=== PATIENT | male | born 1960 | race Caucasian/White ===

== ENCOUNTER 2017-09-21 06:11 | Day surgery (SDC) | payer BC ==
[2017-09-17 15:22] VITALS: BMI 27.1
[2017-09-21] MEDS ORDERED: BUPIVACAINE HCL/PF 0.5% (5MG/ML) 10 ML VIAL ONE (07:14)
[2017-09-21] MEDS ORDERED: morphine CARPU-JECT 10 MG/1 ML DISP.SYRIN ONE (07:16)
[2017-09-21] MEDS ORDERED: PROPOFOL 20 ML ONE ×3 (07:22→08:31)
[2017-09-21] MEDS ORDERED: SUCCINYLCHOLINE CHLORIDE 200 MG/10 ML VIAL ONE (07:22)
[2017-09-21] MEDS ORDERED: MIDAZOLAM HCL 2 MG/2 ML SINGLE DOSE VIAL ONE (07:22)
[2017-09-21] MEDS ORDERED: ONDANSETRON 4 MG/2 ML VIAL ONE (07:23)
[2017-09-21] MEDS ORDERED: LIDOCAINE HCL/PF 2% SDV 5ML VIAL ONE ×2 (07:23→08:18)
[2017-09-21] MEDS ORDERED: KETOROLAC TROMETHAMINE 30 MG/1 ML VIAL ONE ×2 (07:23→08:19)
[2017-09-21] MEDS ORDERED: DEXAMETHASONE SOD PHOSPHATE 4 MG/1 ML VIAL ONE ×2 (07:23→08:19)
[2017-09-21] MEDS ORDERED: SEVOFLURANE 250 ML BTL ONE (07:31)
[2017-09-21] MEDS ORDERED: oxyCODONE HCL 5 MG TABLET PO PRN ×2 (07:53)
[2017-09-21] MEDS ORDERED: ONDANSETRON 4 MG/2 ML VIAL IVPUSH PRN (07:53)
[2017-09-21] MEDS ORDERED: LACTATED RINGERS SOLUTION 1,000 ML IV SCH (08:00)
[2017-09-21] MEDS ORDERED: SODIUM CHLORIDE 0.9% P/F 10 ML VIAL IJ ONE ×2 (08:21→08:27)
[2017-09-21] MEDS ORDERED: ROCURONIUM BROMIDE 50 MG/5 ML VIAL ONE (08:21)
[2017-09-21] MEDS ORDERED: ceFAZolin SODIUM 1 GM VIAL ONE ×2 (08:21→08:27)
[2017-09-21] MEDS ORDERED: ePHEDrine SULFATE 50 MG/1 ML AMPULE ONE (08:23)
[2017-09-21] MEDS ORDERED: BUPIVACAINE HCL/PF 0.5% (5MG/ML) 10 ML VIAL IJ ONE (08:33)
[2017-09-21] MEDS ORDERED: morphine CARPU-JECT 10 MG/1 ML DISP.SYRIN IM ONE (08:45)
[2017-09-21] MEDS ORDERED: BUPIVACAINE HCL/PF (5 MG/ML) 30 ML VIAL IJ ONE (08:45)
[2017-09-21 10:11] VITALS: TEMP 97.6
[2017-09-21 10:55] VITALS: BP 134/92; PULSE 77
--- NOTE | 2017-09-21 12:17 | OP ---
DATE OF OPERATION: 09/21/2017 PREOPERATIVE DIAGNOSIS: Torn medial meniscus to the left knee. POSTOPERATIVE DIAGNOSIS: Torn medial and lateral meniscus, left knee, with chondromalacia, hypertrophic synovium, joint debris. PROCEDURE PERFORMED: Operative arthroscopy, left knee, with partial medial and lateral meniscectomy, chondroplasty, synovectomy, joint debridement. SURGEON: Julio Parham MD PHYSICAL FITNESS TEACHER: Viraj Quick ANESTHESIA: Dr. Nesbitt, general anesthesia. DESCRIPTION OF PROCEDURE: Patient brought in the operating room, gently transferred from the stretcher to the OR table with all bony prominences were padded. The patient was given IV antibiotics and copious irrigation throughout the procedure to minimize risk for infection. Complete risk, benefit discussion was conducted with the patient which was inclusive of but not limited to infection, bleeding, , paralysis, increased pain, need for repeat surgery. Patient understood, asked questions and understood the procedure and desired to proceed. Appropriate timeout which was inclusive of but not limited to the type of surgery, location of surgery, anesthesiologist, and medical condition was conducted. Following sterile preparation and draping of the left knee, the leg was exsanguinated using red rubber Esmarch bandage, tourniquet inflated to 350 mmHg. Suprapatellar and medial and lateral joint line portals were used to introduce the arthroscope and arthroscopic instruments. The knee was examined. There was noted to be hypertrophic synovium in the suprapatellar pouch. Partial synovectomy was performed. Inferior surface of the patella had damage consistent with chondromalacia. This was smoothed using a shaver and a radiofrequency wand. The medial and lateral gutters without plica and loose body. The medial meniscus was found to have a tear of the posterior horn and this was resected using the shaver and radiofrequency wand. Intercondylar region was noted to have joint debris and joint debridement was performed. Lateral meniscus was found to have a tear of the posterior horn and this was resected using shaver and the radiofrequency wand. Cruciate ligaments were found to be intact. Following this, copious irrigation was performed. The wounds were then closed with 4-0 undyed Vicryl followed by Steri-Strips, 4 x 4's , sterile Webril, Go bandage. The tourniquet was deflated after approximately 20 minutes of surgical time. There were no intraoperative complications. Cathy [id number] MTDD
== END 2017-09-21 10:45 | disposition home or self-care (01) ==
LOC: FASU 06:11
PROVIDERS: ATTEND Orthopaedic Surgery
PROC: 0SBD4ZZ Excision of Left Knee Joint, Percutaneous Endoscopic Approach (ICD-10-PCS; 2017-09-21)
PROC: 0SBD4ZZ Excision of Left Knee Joint, Percutaneous Endoscopic Approach (ICD-10-PCS; 2017-09-21)
PROC: 0SBD4ZZ Excision of Left Knee Joint, Percutaneous Endoscopic Approach (ICD-10-PCS; principal; 2017-09-21 08:34)
DX: S83.242A Other tear of medial meniscus, current injury, left knee, initial encounter (principal); S83.282A Other tear of lateral meniscus, current injury, left knee, initial encounter; M22.42 Chondromalacia patellae, left knee; M67.262 Synovial hypertrophy, not elsewhere classified, left lower leg; M23.42 Loose body in knee, left knee
CPT/HCPCS: 94760

== ENCOUNTER 2018-11-26 08:25 | Day surgery (SDC) | payer BC, OTHER ==
[2018-11-25 09:18] VITALS: BMI 27.3
[2018-11-26] MEDS ORDERED: methylPREDNISolone ACET (DEPO) 40 MG/1 ML VIAL ONE (10:16)
[2018-11-26] MEDS ORDERED: BUPIVACAINE HCL/PF 0.5% (5MG/ML) 10 ML VIAL ONE (10:17)
[2018-11-26] MEDS ORDERED: KETOROLAC TROMETHAMINE 30 MG/1 ML VIAL ONE (10:27)
[2018-11-26] MEDS ORDERED: ceFAZolin SODIUM 1 GM VIAL ONE (10:27)
[2018-11-26] MEDS ORDERED: oxyCODONE HCL 5 MG TABLET PO PRN (10:41)
[2018-11-26] MEDS ORDERED: PROMETHAZINE HCL 25 MG/1 ML VIAL IVPUSH PRN (10:41)
[2018-11-26] MEDS ORDERED: ONDANSETRON 4 MG/2 ML VIAL IVPUSH PRN (10:41)
[2018-11-26 11:23] VITALS: TEMP 98.4
[2018-11-26 11:27] VITALS: BP 124/80; PULSE 60
--- NOTE | 2018-11-26 12:36 | OP ---
DATE OF OPERATION: 11/26/2018 PREOPERATIVE DIAGNOSIS: Lumbar spinal instability. POSTOPERATIVE DIAGNOSIS: Lumbar spinal instability. PROCEDURE PERFORMED: Lumbar facet injection left and right side under fluoroscopic guidance L4-L5. ANESTHESIA: Dr. Lucas, monitored anesthesia care is performed. DESCRIPTION OF PROCEDURE: The procedure consisted of the patient being brought into the operating room and gently transferred from the stretcher to the OR table with all bony prominences well padded. The patient was given intravenous antibiotics under sterile technique throughout the procedure to minimize the risk of infection. A complete risk, benefit, alternative discussion was conducted with the patient, which was inclusive of, but not limited to, infection, bleeding, , paralysis, increased pain, need for repeat surgery. The patient asked questions, understood the procedure, and decided to proceed with the surgical treatment. Following sterile preparation and draping of the lumbar spine, an appropriate time-out identifying, but not limited to, type of surgery, surgical site, anesthesiologist, and surgeon was performed. Following this, fluoroscopic guidance was used to identify the L4-L5 left and right side lumbar facets, and a 22-gauge spinal needle was introduced into each facet. A solution of 1 mL Depo-Medrol 40 mg/mL and 4 mL of Marcaine were instilled into the facet in the area immediately adjacent to the facet on the left and right sides. The needle was withdrawn. Sterile dressings were applied. The patient was then gently awakened from anesthesia without incident and transferred from the operating room to the recovery room in satisfactory condition. There were no intraoperative complications. Cathy [id number]
== END 2018-11-26 11:27 | disposition home or self-care (01) ==
LOC: FASU 08:25
PROVIDERS: ATTEND Orthopaedic Surgery
PROC: 3E0T3BZ Introduction of Anesthetic Agent into Peripheral Nerves and Plexi, Percutaneous Approach (ICD-10-PCS; 2018-11-26)
PROC: BR16YZZ Fluoroscopy of Lumbar Facet Joint(s) using Other Contrast (ICD-10-PCS; 2018-11-26)
PROC: 3E0T33Z Introduction of Anti-inflammatory into Peripheral Nerves and Plexi, Percutaneous Approach (ICD-10-PCS; principal; 2018-11-26 10:32)
DX: M53.2X6 Spinal instabilities, lumbar region (principal)
CPT/HCPCS: 72100-TC-FY; 94760